=== PATIENT | male | born 1940 | race Hispanic/Latino ===

== ENCOUNTER 2016-07-11 14:24 | Inpatient (IN) | payer MEDICARE ==
[2016-07-11 16:27] LABS: Basophils % (Auto) 0.4 % (0.0-1.8); Eosinophils % (Auto) 3.4 % (0.0-4.3); Hemoglobin 11.3 gm/dl (11.8-15.2); Mean Corpuscular HGB Conc 33 % (32-34); Mean Corpuscular Hemoglobin 30 pg (28-32); Mean Corpuscular Volume 89 fl (84-94); Platelet Count 218 K/mm3 (140-440); Red Blood Count 3.81 M/mm3 (3.65-5.03); Red Cell Distribution Width 14.5 % (13.2-15.2); White Blood Count 6.4 K/mm3 (4.5-11.0)
[2016-07-11] MEDS ORDERED: NACL 0.9% 1000 ML 1,000 ML IV ONE (16:38)
[2016-07-11 16:39] LABS: BUN/Creatinine Ratio 18.88; Blood Urea Nitrogen 17 mg/dL (9-20); Calcium 9.4 mg/dL (8.4-10.2); Carbon Dioxide 21 mmol/L (22-30); Glucose 157 mg/dL (75-100)
[2016-07-11 16:40] LABS: Chloride 102.8 mmol/L (98-107); Potassium 3.9 mmol/L (3.6-5.0); Sodium 142 mmol/L (137-145)
--- NOTE | 2016-07-11 16:40 | Emergency Department Report ---
ED General Adult HPI - General Chief complaint: Chest Pain Stated complaint: DIZZINESS Time Seen by Provider: 07/11/16 16:24 Source: patient, family, EMS, old records reviewed Mode of arrival: Stretcher Limitations: Physical Limitation - History of Present Illness Initial comments: This is a 75-year-old male, previously unknown to me. His primary care doctor is Dr. Peter Khan. Has a past medical history intracranial shunt, high cholesterol, hypertension, renal colic. Patient is brought to the hospital by EMS for dizziness and weakness. As per EMS documentation, the patient indicated he felt dizzy and weak for a few weeks. Also, chronic pain in his lower back. Patient's family indicated to me that the patient had an episode of syncope today. He was sitting down, and it'll think he hit his head. To me, the patient denies chest pain, shortness of breath and upper back pain. He complains of chronic left paralumbar back pain, which is sharp, does not radiate anywhere. There is no midline neck pain. There is no extremity weakness. There is no extremity numbness. There is no testicular pain. There are no fevers. Denies irritative and obstructive urinary symptoms. Has no recollection of syncopal event. Patient reports that he came here recently for kidney stone procedure, but medical records do not corroborate this. -: Gradual, week(s) Location: back Quality: aching Consistency: constant Improves with: none Worsens with: none Associated Symptoms: loss of appetite, syncope, weakness - Related Data Home Medications Medication Instructions Recorded Confirmed Last Taken Amlodipine Besylate/Benazepril 1 cap PO QDAY 10/25/13 07/11/16 11/21/13 06:30 [amLODIPine-Benazepril 10/20 mg] Atorvastatin [Lipitor] 40 mg PO QDAY 10/25/13 07/11/16 11/20/13 Fenofibrate 160 mg PO QDAY 10/25/13 07/11/16 11/20/13 Finasteride 5 mg PO QDAY 10/25/13 07/11/16 11/20/13 Metoprolol Xl [Metoprolol 50 mg PO QDAY 10/25/13 07/11/16 11/21/13 06:30 SUCCINATE ER TAB] Sitagliptin Phosphate [Januvia] 100 mg PO QDAY 10/25/13 07/11/1611/20/14 glyBURIDE/METFORMIN HCL 1 tab PO BID 10/25/13 07/11/16 11/20/13 [Glyburide-Metformin 5-500 mg] Aspirin EC [Aspirin Enteric Coated 81 mg PO DAILY 11/15/13 07/11/16 Unknown TAB] Previous Rx's Medication Instructions Recorded Last Taken Type Ketorolac [Toradol] 10 mg PO Q6H PRN #7 tablet 03/28/16 Unknown Rx Ondansetron [Zofran Odt] 4 mg PO Q4H PRN #5 tab.rapdis 03/28/16 Unknown Rx Ibuprofen [Motrin] 800 mg PO Q8HR PRN #30 tablet 04/27/16 Unknown Rx Allergies Allergy/AdvReac Type Severity Reaction Status Date / Time oxycodone [Oxycodone] Allergy THROAT Verified 11/15/13 15:25 [facility] ED Review of Systems ROS: Stated complaint: DIZZINESS Other details as noted in HPI Constitutional: malaise, weakness Eyes: denies: vision change ENT: denies: epistaxis Respiratory: see HPI Cardiovascular: syncope Gastrointestinal: denies: abdominal pain Genitourinary: denies: testicular pain Musculoskeletal: back pain Skin: denies: lesions Neurological: weakness, confusion ED Past Medical Hx - Past Medical History Previous Medical History?: Yes Hx Hypertension: Yes Hx Diabetes: Yes Hx Arthritis: Yes (bilat thumbs) - Surgical History Past Surgical History?: Yes Additional Surgical History: neck surgery 12/23; shunt pariatal rt 2014 - Social History Smoking Status: Never Smoker Substance Use Type: None - Medications Home Medications: Home Medications Medication Instructions Recorded Confirmed Last Taken Type Amlodipine Besylate/Benazepril 1 cap PO QDAY 10/25/13 07/11/16 11/21/13 06:30 History [amLODIPine-Benazepril 10/20 mg] Atorvastatin [Lipitor] 40 mg PO QDAY 10/25/13 07/11/16 11/20/13 History Fenofibrate 160 mg PO QDAY 10/25/13 07/11/16 11/20/13 History Finasteride 5 mg PO QDAY 10/25/13 07/11/16 11/20/13 History Metoprolol Xl [Metoprolol 50 mg PO QDAY 10/25/13 07/11/16 11/21/13 06:30 History SUCCINATE ER TAB] Sitagliptin Phosphate [Januvia] 100 mg PO QDAY 10/25/13 07/11/16 11/20/13 History glyBURIDE/METFORMIN HCL 1 tab PO BID 10/25/13 07/11/16 11/20/13 History [Glyburide-Metformin 5-500 mg] Aspirin EC [Aspirin Enteric Coated 81 mg PO DAILY 11/15/13 07/11/16 Unknown History TAB] Ketorolac [Toradol] 10 mg PO Q6H PRN #7 tablet 03/28/16 07/11/16 Unknown Rx Ondansetron [Zofran Odt] 4 mg PO Q4H PRN #5 tab.rapdis 03/28/16 07/11/16 Unknown Rx Ibuprofen [Motrin] 800 mg PO Q8HR PRN #30 tablet 04/27/16 07/11/16 Unknown Rx ED Physical Exam - General Limitations: Physical Limitation General appearance: alert, in no apparent distress - Head Head exam: Present: atraumatic, normocephalic - Eye Eye exam: Present: normal appearance, EOMI. Absent: nystagmus - ENT ENT exam: Present: normal exam, normal orophraynx, mucous membranes moist, normal external ear exam - Neck Neck exam: Present: normal inspection, full ROM. Absent: tenderness, meningismus - Respiratory Respiratory exam: Present: normal lung sounds bilaterally. Absent: respiratory distress, wheezes, rales, rhonchi, stridor, chest wall tenderness - Cardiovascular Cardiovascular Exam: Present: normal rhythm, tachycardia, normal heart sounds. Absent: systolic murmur, diastolic murmur, rubs, gallop - GI/Abdominal GI/Abdominal exam: Present: soft, normal bowel sounds. Absent: distended, tenderness, guarding, rebound, rigid, organomegaly, mass, bruit, pulsatile mass - Rectal Rectal exam: Present: deferred - Extremities Exam Extremities exam: Present: normal inspection, full ROM, normal capillary refill. Absent: tenderness, pedal edema, joint swelling, calf tenderness - Back Exam Back exam: Present: normal inspection, full ROM, paraspinal tenderness - Neurological Exam Neurological exam: Present: alert, oriented X3, other (Extraocular movements intact. Tongue midline. No facial droop. Facial sensation intact to light touch in the V1, V2, V3 distribution bilaterally. 5 and 5 strength in 4 extremities.. Sensation is intact to light touch in 4 extremities.X-rays chest x-ray is). Absent: motor sensory deficit - Psychiatric Psychiatric exam: Present: flat affect - Skin Skin exam: Present: warm, dry, intact, normal color. Absent: rash ED Course Vital Signs 07/11/16 07/11/16 07/11/16 14:48 15:00 15:30 Temperature Pulse Rate 108 H 89 94 H Respiratory 14 22 19 Rate Blood Pressure 157/28 109/44 O2 Sat by Pulse 98 97 Oximetry 07/11/16 07/11/16 07/11/16 15:32 15:50 16:00 Temperature 97.8 F Pulse Rate 94 H 96 H Respiratory 16 16 17 Rate Blood Pressure 144/56 98/47 O2 Sat by Pulse 98 99 99 Oximetry 07/11/16 07/11/16 07/11/16 16:10 16:30 17:00 Temperature Pulse Rate 97 H 94 H 91 H Respiratory 18 13 20 Rate Blood Pressure 98/47 144/73 147/70 O2 Sat by Pulse 98 98 97 Oximetry - Reevaluation(s) Reevaluation #1: 07/11/16 17:33 Differential diagnosis: Intracranial injury, arrhythmia, pneumonia, urinary tract infection, structural cardiac disease, pulmonary embolus, concussion, aortic aneurysm, renal colic, diverticulitis, acute coronary syndrome, orthostasis Assessment and plan: Elderly male complaining of weakness, diarrhea, lower back pain, found to have episode of syncope by family. Patient is a poor historian. He is alert and oriented to name, month, year, location. Does report a recent hospital admission for nonspecific renal procedure, he cannot recall what hospital. No indication for cervical spine imaging at this time. As per brother, the patient was sitting when he had a syncopal event. CT scan of the head is pending. CT scan of the chest is pending giving positive d-dimer. CT scan of the abdomen and pelvis is pending given lower back pain. Slightly hypomagnesemic, this will be repleted. Urinalysis and rectal temperature pending. We will assess after data points have returned, plan to admit for syncope, weakness. Reevaluation #2: 07/11/16 21:01 CT scan of the head, chest, abdomen and pelvis demonstrated no acute disease. Indeterminate age compression fracture is suggested. Given his advanced age, possible syncope, unclear/ambiguous history, patient to be admitted for further evaluation and management. Case is discussed with the Hospital physician, Dr. Watts, who accepts the patient. ED Medical Decision Making - Lab Data Result diagrams: 07/11/16 15:59 07/11/16 15:59 Vital Signs 07/11/16 07/11/16 07/11/16 14:48 15:00 15:30 Temperature Pulse Rate 108 H 89 94 H Respiratory 14 22 19 Rate Blood Pressure 157/28 109/44 O2 Sat by Pulse 98 97 Oximetry 07/11/16 07/11/16 07/11/16 15:32 15:50 16:00 Temperature 97.8 F Pulse Rate 94 H 96 H Respiratory 16 16 17 Rate Blood Pressure 144/56 98/47 O2 Sat by Pulse 98 99 99 Oximetry 07/11/16 07/11/16 07/11/16 16:10 16:30 17:00 Temperature Pulse Rate 97 H 94 H 91 H Respiratory 18 13 20 Rate Blood Pressure 98/47 144/73 147/70 O2 Sat by Pulse 98 98 97 Oximetry Labs 07/11/16 07/11/16 07/11/16 15:59 15:59 15:59 WBC 6.4 RBC 3.81 Hgb 11.3 L Hct 34.0 L MCV 89 MCH 30 MCHC 33 RDW 14.5 Plt Count 218 Lymph % (Auto) 6.8 L Irwin % (Auto) 4.9 Eos % (Auto) 3.4 Baso % (Auto) 0.4 Lymph # 0.4 L Irwin # 0.3 Eos # 0.2 Baso # 0.0 Seg Neutrophils % 84.5 H Seg Neutrophils # 5.4 PT INR APTT D-Dimer Sodium 142 Potassium 3.9 Chloride 102.8 Carbon Dioxide 21 L Anion Gap 22 BUN 17 Creatinine 0.9 Estimated GFR > 60 BUN/Creatinine Ratio 18.88 Glucose 157 H Calcium 9.4 Magnesium 1.6 L Total Creatine Kinase 29 L Troponin T < 0.010 07/11/16 07/11/16 16:42 17:13 WBC RBC Hgb Hct MCV MCH MCHC RDW Plt Count Lymph % (Auto) Irwin % (Auto) Eos % (Auto) Baso % (Auto) Lymph # Irwin # Eos # Baso # Seg Neutrophils % Seg Neutrophils # PT 13.5 INR 1.04 APTT 24.2 D-Dimer 844 H Sodium Potassium Chloride Carbon Dioxide Anion Gap BUN Creatinine Estimated GFR BUN/Creatinine Ratio Glucose Calcium Magnesium Total Creatine Kinase Troponin T - EKG Data 07/11/16 17:35 Motion artifacts noted, premature ventricular contractions, 82 bpm, normal axis , normal intervals, nonspecific ST and T abnormalities, appears grossly unchanged compared to prior EKG. - Radiology Data Radiology results: report reviewed, image reviewed interpreted by me: Portable chest x-ray negative, perihilar atelectasis appreciated Radiology chest x-ray negative. X-ray pelvis negative, DJD, prostatic seed appreciated. ct reports read and appreciated Critical care attestation.: If time is entered above; I have spent that time in minutes in the direct care of this critically ill patient, excluding procedure time. ED Disposition Clinical Impression: Syncope Qualifiers: Encounter type: initial encounter Disposition: OP ADMITTED IP TO THIS HOSP Is pt being admited?: Yes Condition: Stable Instructions: Syncope (ED) Referrals: PRIMARY CARE, [Primary Care Provider] - 3-5 Days
[2016-07-11 16:41] LABS: Anion Gap 22 mmol/L
[2016-07-11] MEDS ORDERED: NACL ONE (16:53)
[2016-07-11 17:09] LABS: INR 1.04 (0.87-1.13)
[2016-07-11 17:10] LABS: Partial Thromboplastin Time 24.2 Sec. (24.2-36.6)
[2016-07-11 17:15] LABS: Magnesium 1.6 mg/dL (1.7-2.3)
[2016-07-11] MEDS ORDERED: MAGNESIUM SULFATE 2GM/50ML 50 ML IV ONE (17:30)
--- NOTE | 2016-07-11 17:52 | XRay Report ---
FINAL REPORT EXAM: XR CHEST 1V AP HISTORY: syncope TECHNIQUE: upright single view chest PRIORS: No prior studies are available comparison FINDINGS: Cardiac and mediastinal contours are unremarkable. No focal pulmonary infiltrate is identified. No pleural fluid collection seen. Pulmonary vasculature is unremarkable. Tubing overlies the right richard thorax IMPRESSION: No acute abnormality identified
--- NOTE | 2016-07-11 18:28 | Cat Scan Report ---
FINAL REPORT EXAM: CT HEAD/BRAIN WO CON HISTORY: weakness syncoope TECHNIQUE: CT head without contrast PRIORS: None. FINDINGS: Right posterior ventriculostomy to is identified tip of the tube at the left lateral ventricle. There is parenchymal volume loss with generalized prominence ventricles and sulci. No acute intra or extra-axial hemorrhage is identified. No acute parenchymal abnormality seen. Bony calvarium is unremarkable. Visualized portions of the mastoids and paranasal sinuses are unremarkable. IMPRESSION: Ventriculostomy tube Atrophy with generalized parenchymal volume loss No acute intracranial findings
[2016-07-11 18:47] LABS: Urine Drugs of Abuse Note Disclamer
--- NOTE | 2016-07-11 18:50 | Cat Scan Report ---
FINAL REPORT EXAM: CT ABDOMEN PELVIS W CON HISTORY: weakness syncoope TECHNIQUE: CT abdomen and pelvis with intravenous contrast PRIORS: None. FINDINGS: No acute abnormality identified in the lung bases. No focal abnormality identified within the liver parenchyma. The spleen demonstrates normal size and attenuation. No pancreatic abnormalities seen. The kidneys demonstrate symmetric contrast enhancement. No evidence of hydronephrosis. The adrenal glands are unremarkable Abdominal aorta is normal in caliber. No pathologically enlarged lymph nodes are identified. Trace of free fluid noted in the lower pelvis. No evidence of small bowel dilatation. Colon is nondistended. No pericolonic inflammatory change. CLINICAL RESEARCH TECHNICIAN shunt tubing is seen distal end within the right lower quadrant of the abdomen. Urinary bladder is unremarkable. Compression fracture of L2 noted age-indeterminate appears most likely chronic please correlate with clinical findings. IMPRESSION: L2 compression fracture age indeterminate Trace of free fluid noted in the lower pelvis CLINICAL RESEARCH TECHNICIAN shunt tubing noted in the abdomen..
--- NOTE | 2016-07-11 18:59 | Cat Scan Report ---
FINAL REPORT EXAM: CT ANGIO CHEST HISTORY: weakness syncoope TECHNIQUE: CT chest CT angiogram with reconstructions PRIORS: None. FINDINGS: There is no evidence of filling defect within the central pulmonary vasculature to suggest the presence of acute pulmonary embolus. No evidence of mediastinal pathologic lymph node enlargement Heart and great vessels are unremarkable. The aorta is normal in caliber. No focal pulmonary infiltrate identified. No pleural fluid collection seen. No acute pulmonary abnormality noted. Visualized portion of the upper abdomen demonstrates no acute change There elevation of the right hemidiaphragm. IMPRESSION: Elevated right hemidiaphragm noted No CT evidence of acute pulmonary embolus
--- NOTE | 2016-07-11 19:03 | XRay Report ---
FINAL REPORT EXAM: XR PELVIS 1-2V HISTORY: pain weakness TECHNIQUE: AP pelvis PRIORS: None. FINDINGS: Radiation therapy seeds noted in the prostate. No acute fracture identified. No dislocation seen. Noted are degenerative changes lower lumbar spine. IMPRESSION: Radiation therapy seeds in the prostate Degenerative changes noted at the SI joints and lumbar spine Otherwise no acute findings
[2016-07-11 19:21] LABS: Bilirubin,Urine NEG (Negative); Blood,Urine NEG (Negative); Ketones,Urine NEG (Negative); Leukocyte Esterase,Urine NEG (Negative); Mucus,Urine 1+ /HPF; Nitrite,Urine NEG (Negative); Protein,Urine <15 mg/dL mg/dL (Negative); Urobilinogen,Urine < 2.0 mg/dL (<2.0)
--- NOTE | 2016-07-11 22:31 | History and Physical Report ---
History of Present Illness Date of examination: 07/11/16 Date of admission: 07/11/16 Chief complaint: Passed out per family this afternoon. History of present illness: 75 y/o WM -a poor historian brought in for passing out.As per patient he has dizziness and weakness.Also severee Lower back pain with radiation to L gluteal region.Apparently passed out while in a sitting posture per family.Patient unable to recall.No chest pain.No SOB.No fever /chills. Pain lower back about 7 on scale of 10. Past History Past Medical History: diabetes, hypertension, hyperlipidemia, other (LBP and BPH ) Past Surgical History: Other (Neck surgery and shunt-family not clear.Ventriculo peritoneal shunt???) Social history: no significant social history, lives with family Medications and Allergies Allergies Allergy/AdvReac Type Severity Reaction Status Date / Time oxycodone [Oxycodone] Allergy THROAT Verified 11/15/13 15:25 SWELLS Home Medications Medication Instructions Recorded Confirmed Last Taken Type Amlodipine Besylate/Benazepril 1 cap PO QDAY 10/25/13 07/11/16 11/21/13 06:30 History [amLODIPine-Benazepril 10/20 mg] Atorvastatin [Lipitor] 40 mg PO QDAY 10/25/13 07/11/16 11/20/13 History Fenofibrate 160 mg PO QDAY 10/25/13 07/11/16 11/20/13 History Finasteride 5 mg PO QDAY 10/25/13 07/11/16 11/20/13 History Metoprolol Xl [Metoprolol 50 mg PO QDAY 10/25/13 07/11/16 11/21/13 06:30 History SUCCINATE ER TAB] Sitagliptin Phosphate [Januvia] 100 mg PO QDAY 10/25/13 07/11/16 11/20/13 History glyBURIDE/METFORMIN HCL 1 tab PO BID 10/25/13 07/11/16 11/20/13 History [Glyburide-Metformin 5-500 mg] Aspirin EC [Aspirin Enteric Coated 81 mg PO DAILY 11/15/13 07/11/16 Unknown History TAB] Ketorolac [Toradol] 10 mg PO Q6H PRN #7 tablet 03/28/16 07/11/16 Unknown Rx Ondansetron [Zofran Odt] 4 mg PO Q4H PRN #5 tab.rapdis 03/28/16 07/11/16 Unknown Rx Ibuprofen [Motrin] 800 mg PO Q8HR PRN #30 tablet 04/27/16 07/11/16 Unknown Rx Review of Systems All systems: negative Cardiovascular: syncope Musculoskeletal: low back pain Exam - Constitutional Vitals: Temp Pulse Resp BP Pulse Ox 97.8 F 117 H 14 135/51 97 07/11/16 15:32 07/11/16 18:30 07/11/16 18:30 07/11/16 21:00 07/11/16 21:00 General appearance: Present: no acute distress, well-nourished - EENT Eyes: Present: PERRL ENT: hearing intact, clear oral mucosa - Neck Neck: Present: supple, normal ROM - Respiratory Respiratory effort: normal Respiratory: bilateral: CTA - Cardiovascular Heart Sounds: Present: S1 & S2. Absent: rub, click - Extremities Extremities: pulses symmetrical, No edema Peripheral Pulses: within normal limits - Abdominal General gastrointestinal: Present: soft, non-tender, non-distended, normal bowel sounds Male genitourinary: Present: normal - Integumentary Integumentary: Present: clear, warm, dry - Musculoskeletal Musculoskeletal: gait normal, strength equal bilaterally - Psychiatric Psychiatric: appropriate mood/affect, intact judgment & insight - Neurologic Neurologic: CNII-XII intact, moves all extremities Results - Labs CBC & Chem 7: 07/11/16 15:59 07/11/16 15:59 Labs: Abnormal lab results 07/11/16 07/11/16 07/11/16 Range/Units 15:59 15:59 15:59 Hgb 11.3 L (11.8-15.2) gm/dl Hct 34.0 L (35.5-45.6) % Lymph % (Auto) 6.8 L (13.4-35.0) % Lymph # 0.4 L (1.2-5.4) K/mm3 Seg Neutrophils % 84.5 H (40.0-70.0) % D-Dimer (0-234) ng/mlDDU Carbon Dioxide 21 L (22-30) mmol/L Glucose 157 H (75-100) mg/dL Lactic Acid (0.7-2.0) mmol/L Magnesium 1.6 L (1.7-2.3) mg/dL Total Creatine Kinase 29 L (55-170) units/L 07/11/16 07/11/16 Range/Units 17:13 17:13 Hgb (11.8-15.2) gm/dl Hct (35.5-45.6) % Lymph % (Auto) (13.4-35.0) % Lymph # (1.2-5.4) K/mm3 Seg Neutrophils % (40.0-70.0) % D-Dimer 844 H (0-234) ng/mlDDU Carbon Dioxide (22-30) mmol/L Glucose (75-100) mg/dL Lactic Acid 2.4 H* (0.7-2.0) mmol/L Magnesium (1.7-2.3) mg/dL Total Creatine Kinase (55-170) units/L Assessment and Plan - Patient Problems (1) Syncope Current Visit: Yes Status: Acute Qualifiers: Encounter type: initial encounter Plan to address problem: Syncope w/u-Lexiscan,Carotid duplex scan and serial cardiac enzymmes. (2) HTN (hypertension) Current Visit: Yes Status: Chronic Qualifiers: Hypertension type: essential hypertension Qualified Code(s): I10 - Essential (primary) hypertension Plan to address problem: Cont antihypertensives (3) HLD (hyperlipidemia) Current Visit: Yes Status: Acute Qualifiers: Hyperlipidemia type: mixed hyperlipidemia Qualified Code(s): E78.2 - Mixed hyperlipidemia Plan to address problem: Cont statins and fenofibrate (4) T2DM (type 2 diabetes mellitus) Current Visit: Yes Status: Acute Qualifiers: Diabetes mellitus complication status: without complication Diabetes mellitus intermediate insulin use: without marine oil terminal superintendent use Qualified Code(s): E11.9 - Type 2 diabetes mellitus without complications Plan to address problem: Cont oral hypoglycemics and insulin coverage. (5) BPH (benign prostatic hyperplasia) Current Visit: Yes Status: Chronic Qualifiers: Prostatic enlargement morphology: unspecified morphology Lower urinary tract symptom presence: symptoms present Qualified Code(s): N40.1 - Benign prostatic hyperplasia with lower urinary tract symptoms Plan to address problem: Cont Finasteride (6) Hypomagnesemia Current Visit: Yes Status: Acute Plan to address problem: Supplemented (7) Low back pain Current Visit: Yes Status: Chronic Qualifiers: Back pain laterality: left Sciatica presence: with sciatica Plan to address problem: L2 compression fracture on abdominal/pelvis CT. On ketorolac.Will defer to Primary care regading need for low to moderate of opiates in place of ketorolac which can damage renal function. (8) DVT prophylaxis Current Visit: Yes Status: Acute Plan to address problem: On lovenox sub q
[2016-07-11] MEDS ORDERED: TORADOL PO PRN (22:32)
[2016-07-11] MEDS ORDERED: MOTRIN PO PRN (22:32)
[2016-07-11] MEDS ORDERED: ZOFRAN ODT PO PRN (22:32)
[2016-07-11] MEDS ORDERED: ZOFRAN IV PRN (22:37)
[2016-07-11] MEDS ORDERED: PERCOCET 5/325 PO PRN (22:37)
[2016-07-11] MEDS ORDERED: TYLENOL PO PRN (22:37)
[2016-07-11] MEDS ORDERED: DILAUDID IV PRN (22:37)
[2016-07-11] MEDS ORDERED: DULCOLAX PR PRN (22:37)
[2016-07-11] MEDS ORDERED: MILK OF MAGNESIA PO PRN (22:37)
[2016-07-11] MEDS ORDERED: SODIUM CHLORIDE FLUSH SYRINGE 10 ML IV PRN (22:40)
[2016-07-11] MEDS ORDERED: NOVOLOG SUB-Q ONE (22:41)
[2016-07-12 00:03] LABS: Creatine Kinase MB 2.5 ng/mL (0.0-4.0)
[2016-07-12 00:04] LABS: Creatine Kinase 165 units/L (55-170)
[2016-07-12] MEDS ORDERED: LEXISCAN IV ONE ×2 (08:14→10:00)
[2016-07-12] MEDS ORDERED: LEXISCAN IV NR (08:14)
[2016-07-12] MEDS ORDERED: MAGNESIUM SULFATE 2GM/50ML 50 ML IV ONE (08:20)
--- NOTE | 2016-07-12 10:42 | Treadmill Report ---
NUCLEAR STUDY REASON FOR STUDY: Chest pain. IMAGING PROTOCOL: The patient received 10 mCi of Technetium 99m Tetrofosmin for resting image and 28 mCi of Technetium 99m Tetrofosmin for stress imaging. The imaging for the whole procedure was completed 30-90 minutes following the initial injection of Technetium 99m tetrofosmin. The SPECT imaging in the 180 degree arc was performed in the right anterior oblique projection. Computerized reconstruction of the images was performed for analysis. IMAGING RESULTS: Normal cavity size from stress to rest. Normal distribution of radionuclide in the anterior, inferior, septal, and apical regions. Gated SPECT, EF 66% with no wall motion abnormality. The patient infused Lexiscan with no EKG changes. SUMMARY: 1. Negative Lexiscan EKG. 2. Normal rest and stress myocardial perfusion scan. No significant stress ischemia. No wall motion abnormality. Gated SPECT, EF 66%. JOB# [id number] JENNIFER/CARROLL
[2016-07-12] MEDS: HALFPRIN EC PO SCH (10:51)
[2016-07-12] MEDS: TOPROL XL PO SCH (10:52)
[2016-07-12] MEDS: NORVASC PO SCH (10:52)
[2016-07-12] MEDS: ZESTRIL PO SCH (10:53)
[2016-07-12] MEDS: TRICOR PO SCH (10:53)
[2016-07-12] MEDS: TRADJENTA PO SCH (10:53)
[2016-07-12] MEDS: PROSCAR PO SCH (10:53)
[2016-07-12 11:51] LABS: Creatine Kinase 154 units/L (55-170)
--- NOTE | 2016-07-12 12:36 | Progress Note ---
Assessment and Plan Assessment and plan: 75 y/o WM -a poor historian brought in for passing out.As per patient he has dizziness and weakness. Also severe Lower back pain with radiation to L gluteal region. Apparently passed out while in a sitting posture per family. Patient unable to recall. No chest pain.No SOB.No fever /chills. Pain lower back about 7 on scale of 10. * Syncope and collapse likely vasovagal in nature * Normal pressure hydrocephalus * Chronic low back pain * Peripheral vascular disease * Hypertension * Lactic acidosis-resolved * Hyperlipidemia * Diabetes mellitus Plan * Patient had a stress test done was negative * Continue current therapy * Obtain physical therapy evaluate and treat * Neurology input appreciated will obtain an EEG * If no evidence of seizure will discharge patient in a.m. will need home health * Patient reports that he has a pain physician will recommend continued evaluation of his chronic pain continues to be worse we'll recommend obtaining a neurosurgical evaluation. * No evidence of headache at this time * DVT and GI prophylaxis * Plan discussed with patient in detail History Interval history: Patient seen and examined this morning in no acute distress. Admitted with syncope and forgetfulness Denies any chest pain, nausea, vomiting, diarrhea. Complains of chronic back pain No fever noted blood pressure controlled No adverse events reported to me by nursing staff Hospitalist Physical - Physical exam Narrative exam: VITAL SIGNS: Reviewed. GENERAL: The patient appeared well nourished and normally developed. Vital signs as documented. HEAD: No signs of head trauma. EYES: Pupils are equal. Extraocular motions intact. EARS: Hearing grossly intact. MOUTH: Oropharynx is normal. NECK: No adenopathy, no JVD. CHEST: Chest with clear breath sounds bilaterally. No wheezes, rales, or rhonchi. CARDIAC: Regular rate and rhythm. S1 and S2, without murmurs, gallops, or rubs. VASCULAR: No Edema. Peripheral pulses normal and equal in all extremities. ABDOMEN: Soft, without detectable tenderness. No sign of distention. No rebound or guarding, and no masses palpated. Bowel Sounds normal. MUSCULOSKELETAL: Good range of motion of all major joints. Extremities without clubbing, cyanosis or edema. NEUROLOGIC EXAM: Alert and oriented x 3. Although no focal neurologic deficit patient appears weak. Speech normal. Follows commands. PSYCHIATRIC: Mood normal. SKIN: No rash or lesions. - Constitutional Vitals: Temp Pulse Resp BP Pulse Ox 98.4 F 95 H 20 143/64 96 07/12/16 08:16 07/12/16 10:53 07/12/16 08:16 07/12/16 10:53 07/12/16 11:56 General appearance: Present: no acute distress, well-nourished Results - Labs CBC & Chem 7: 07/11/16 15:59 07/11/16 15:59 Labs: Laboratory Last Values WBC 6.4 K/mm3 (4.5-11.0) 07/11/16 15:59 RBC 3.81 M/mm3 (3.65-5.03) 07/11/16 15:59 Hgb 11.3 gm/dl (11.8-15.2) L 07/11/16 15:59 Hct 34.0 % (35.5-45.6) L 07/11/16 15:59 MCV 89 fl (84-94) 07/11/16 15:59 MCH 30 pg (28-32) 07/11/16 15:59 MCHC 33 % (32-34) 07/11/16 15:59 RDW 14.5 % (13.2-15.2) 07/11/16 15:59 Plt Count 218 K/mm3 (140-440) 07/11/16 15:59 Lymph % (Auto) 6.8 % (13.4-35.0) L 07/11/16 15:59 Wilkinson % (Auto) 4.9 % (0.0-7.3) 07/11/16 15:59 Eos % (Auto) 3.4 % (0.0-4.3) 07/11/16 15:59 Baso % (Auto) 0.4 % (0.0-1.8) 07/11/16 15:59 Lymph # 0.4 K/mm3 (1.2-5.4) L 07/11/16 15:59 Wilkinson # 0.3 K/mm3 (0.0-0.8) 07/11/16 15:59 Eos # 0.2 K/mm3 (0.0-0.4) 07/11/16 15:59 Baso # 0.0 K/mm3 (0.0-0.1) 07/11/16 15:59 Seg Neutrophils % 84.5 % (40.0-70.0) H 07/11/16 15:59 Seg Neutrophils # 5.4 K/mm3 (1.8-7.7) 07/11/16 15:59 PT 13.5 Sec. (12.2-14.9) 07/11/16 16:42 INR 1.04 (0.87-1.13) 07/11/16 16:42 APTT 24.2 Sec. (24.2-36.6) 07/11/16 16:42 D-Dimer 844 ng/mlDDU (0-234) H 07/11/16 17:13 Sodium 142 mmol/L (137-145) 07/11/16 15:59 Potassium 3.9 mmol/L (3.6-5.0) 07/11/16 15:59 Chloride 102.8 mmol/L (98-107) 07/11/16 15:59 Carbon Dioxide 21 mmol/L (22-30) L 07/11/16 15:59 Anion Gap 22 mmol/L 07/11/16 15:59 BUN 17 mg/dL (9-20) 07/11/16 15:59 Creatinine 0.9 mg/dL (0.8-1.5) 07/11/16 15:59 Estimated GFR > 60 ml/min 07/11/16 15:59 BUN/Creatinine Ratio 18.88 % 07/11/16 15:59 Glucose 157 mg/dL (75-100) H 07/11/16 15:59 POC Glucose 121 (70-105) H 07/12/16 00:15 Lactic Acid 0.8 mmol/L (0.7-2.0) 07/12/16 11:12 Calcium 9.4 mg/dL (8.4-10.2) 07/11/16 15:59 Magnesium 1.6 mg/dL (1.7-2.3) L 07/11/16 15:59 Total Creatine Kinase 154 units/L (55-170) 07/12/16 11:12 CK-MB (CK-2) 2.0 ng/mL (0.0-4.0) 07/12/16 11:12 CK-MB (CK-2) Rel Index 1.2 (0-4) 07/12/16 11:12 Troponin T < 0.010 ng/mL (0.00-0.029) 07/12/16 11:12 Urine Color Straw (Yellow) 07/11/16 18:40 Urine Turbidity Clear (Clear) 07/11/16 18:40 Urine pH 6.0 (5.0-7.0) 07/11/16 18:40 Ur Specific [place] 1.026 (1.003-1.030) 07/11/16 18:40 Urine Protein <15 mg/dl mg/dL (Negative) 07/11/16 18:40 Urine Glucose (UA) Neg mg/dL (Negative) 07/11/16 18:40 Urine Ketones Neg mg/dL (Negative) 07/11/16 18:40 Urine Blood Neg (Negative) 07/11/16 18:40 Urine Nitrite Neg (Negative) 07/11/16 18:40 Urine Bilirubin Neg (Negative) 07/11/16 18:40 Urine Urobilinogen < 2.0 mg/dL (<2.0) 07/11/16 18:40 Ur Leukocyte Esterase Neg (Negative) 07/11/16 18:40 Urine WBC (Auto) 1.0 /HPF (0.0-6.0) 07/11/16 18:40 Urine RBC (Auto) 5.0 /HPF (0.0-6.0) 07/11/16 18:40 U Epithel Cells (Auto) 1.0 /HPF (0-13.0) 07/11/16 18:40 Urine Mucus 1+ /HPF 07/11/16 18:40 Urine Opiates Screen Presumptive negative 07/11/16 18:40 Urine Methadone Screen Presumptive negative 07/11/16 18:40 Ur Barbiturates Screen Presumptive negative 07/11/16 18:40 Ur Phencyclidine Scrn Presumptive negative 07/11/16 18:40 Ur Amphetamines Screen Presumptive negative 07/11/16 18:40 U Benzodiazepines Scrn Presumptive negative 07/11/16 18:40 Urine Cocaine Screen Presumptive negative 07/11/16 18:40 U Marijuana (THC) Screen Presumptive negative 07/11/16 18:40 Drugs of Abuse Note Disclamer 07/11/16 18:40 - Imaging and Cardiology CT Scan - head: image reviewed (no acute pathology noted)
[2016-07-12] MEDS: GLUCOPHAGE PO SCH ×2 (12:48→17:26)
[2016-07-12] MEDS: DIABETA PO SCH ×2 (12:48→17:27)
[2016-07-12] MEDS: NOVOLOG SUB-Q SCH ×3 (12:55→23:05)
--- NOTE | 2016-07-12 14:14 | Consultation ---
History of Present Illness - Reason for Consult Consult date: 07/12/16 dementia - History of Present Illness went over the CT and the shunt catheter is in place suspect that the reason he had AUTOMATION TECH shunt is because of normal pressure hydrocephalus generally even after placement of shunt nothing basically will improve the memory loss therefore advise get EEG I will follow up full note dictated Past History Past Medical History: diabetes, hypertension, hyperlipidemia, other (LBP and BPH ) Past Surgical History: Other (Neck surgery and shunt-family not clear.Ventriculo peritoneal shunt???) Social history: no significant social history, lives with family Medications and Allergies Allergies Allergy/AdvReac Type Severity Reaction Status Date / Time oxycodone [Oxycodone] Allergy THROAT Verified 11/15/13 15:25 [facility] Home Medications Medication Instructions Recorded Confirmed Last Taken Type Amlodipine Besylate/Benazepril 1 cap PO QDAY 10/25/13 07/11/16 11/21/13 06:30 History [amLODIPine-Benazepril 10/20 mg] Atorvastatin [Lipitor] 40 mg PO QDAY 10/25/13 07/11/16 11/20/13 History Fenofibrate 160 mg PO QDAY 10/25/13 07/11/16 11/20/13 History Finasteride 5 mg PO QDAY 10/25/13 07/11/16 11/20/13 History Metoprolol Xl [Metoprolol 50 mg PO QDAY 10/25/13 07/11/16 11/21/13 06:30 History SUCCINATE ER TAB] Sitagliptin Phosphate [Januvia] 100 mg PO QDAY 10/25/13 07/11/16 11/20/13 History glyBURIDE/METFORMIN HCL 1 tab PO BID 10/25/13 07/11/16 11/20/13 History [Glyburide-Metformin 5-500 mg] Aspirin EC [Aspirin Enteric Coated 81 mg PO DAILY 11/15/13 07/11/16 Unknown History TAB] Ketorolac [Toradol] 10 mg PO Q6H PRN #7 tablet 03/28/16 07/11/16 Unknown Rx Ondansetron [Zofran Odt] 4 mg PO Q4H PRN #5 tab.rapdis 03/28/16 07/11/16 Unknown Rx Ibuprofen [Motrin] 800 mg PO Q8HR PRN #30 tablet 04/27/16 07/11/16 Unknown Rx Active Meds: Active Medications Acetaminophen (Tylenol) 650 mg PO Q4H PRN PRN Reason: Pain MILD(1-3)/Fever >100.5/AGUILAR Amlodipine Besylate (Norvasc) 10 mg PO QDAY [facility] Last Admin: 07/12/16 10:52 Dose: 10 mg Aspirin (Halfprin Ec) 81 mg PO DAILY [facility] Last Admin: 07/12/16 10:51 Dose: 81 mg Atorvastatin Calcium (Lipitor) 40 mg PO QDAY [facility] Last Admin: 07/12/16 10:51 Dose: 40 mg Bisacodyl (Dulcolax) 10 mg NC QDAY PRN PRN Reason: Constipation unrelieved by MOM Fenofibrate (Tricor) 145 mg PO QDAY [facility] Last Admin: 07/12/16 10:53 Dose: 145 mg Finasteride (Proscar) 5 mg PO QDAY [facility] Last Admin: 07/12/16 10:53 Dose: 5 mg Glyburide (Diabeta) 5 mg PO BIDDIAB [facility] Last Admin: 07/12/16 12:48 Dose: Not Given Hydromorphone HCl (Dilaudid) 1 mg IV Q3H PRN PRN Reason: Pain , Severe (7-10) Ibuprofen (Motrin) 800 mg PO Q8H PRN PRN Reason: Pain Insulin Aspart (Novolog) 0 units SUB-Q ACHS [facility] PRN Reason: Protocol Last Admin: 07/12/16 12:55 Dose: 2 units Ketorolac Tromethamine (Toradol) 10 mg PO Q6H PRN PRN Reason: Pain Stop: 07/16/16 22:31 Linagliptin (Tradjenta) 5 mg PO QDAY [facility] Last Admin: 07/12/16 10:53 Dose: 5 mg Lisinopril (Zestril) 20 mg PO QDAY [facility] Last Admin: 07/12/16 10:53 Dose: 20 mg Magnesium Hydroxide (Milk Of Magnesia) 30 ml PO Q4H PRN PRN Reason: Constipation Metformin HCl (Glucophage) 500 mg PO BIDDIAB [facility] Last Admin: 07/12/16 12:48 Dose: Not Given Metoprolol Succinate (Toprol Xl) 50 mg PO QDAY [facility] Last Admin: 07/12/16 10:52 Dose: 50 mg Ondansetron HCl (Zofran Odt) 4 mg PO Q4H PRN PRN Reason: Nausea And Vomiting Ondansetron HCl (Zofran) 4 mg IV Q8H PRN PRN Reason: N/V unrelieved by Sylvia Sodium Chloride (Sodium Chloride Flush Syringe 10 Ml) 10 ml IV PRN PRN PRN Reason: LINE FLUSH Exam - Constitutional Vitals: Temp Pulse Resp BP Pulse Ox 98.5 F 85 20 171/75 95 07/12/16 12:37 07/12/16 12:37 07/12/16 12:37 07/12/16 12:37 07/12/16 12:37 Results - Labs CBC & Chem 7: 07/11/16 15:59 07/11/16 15:59 Labs: Abnormal lab results 07/12/16 07/12/16 Range/Units 00:15 13:01 POC Glucose 121 H 172 H (70-105)
--- NOTE | 2016-07-13 07:20 | Consultation ---
HISTORY OF PRESENT ILLNESS: This is a 75-year-old white male who is admitted to [facility]. He has a history of recently have an intracranial shunt operation, presumably because of dementia, he was brought by EMS because of dizziness and weakness. He presents with an elaborate history of stating that he had left the hospital, was dizzy, thought he was at home, then told people that he left the hospital and subsequently stated he was back at home and he now feels confused and not like himself and states he feels demented. In reviewing his records, he has a ventriculostomy tube, which is in good position. His parenchymal brain volume loss, no acute lesions. Remainder of the CAT scan is unremarkable. PHYSICAL EXAMINATION: VITAL SIGNS: On my examination of the patient, he is alert, but has very poor recall for events around what happened. NEUROLOGIC: His motor tone is symmetrical. His neck is supple. His ocular movements are full. Medical Office Technician strength is equal. No tremors or asterixis are present. Babinski sounds are not noted. No focal seizure activity is present. IMPRESSION: This patient's history would indicate he had dementia. He obviously has a ventriculostomy and was being down from normal pressure hydrocephalus to treat for dementia. I do not have a cross history from the family members to see if he was taking any medicines for treatment of memory loss such as Namenda and Aricept or Exelon. I would think it would be worthwhile to get an EEG on him for purposes of imaging. A CT scan should suffice typically because neural imaging with an MRI scan will not add much information for the function of a shunt, perhaps contacting his neurosurgery would be worthwhile. I will see if any outside records can be researched, I will access that information tomorrow. JOB# [id number] DU/CARROLL
[2016-07-13] MEDS: NOVOLOG SUB-Q SCH ×4 (08:15→22:35)
[2016-07-13] MEDS: PROSCAR PO SCH (09:40)
[2016-07-13] MEDS: TRICOR PO SCH (09:40)
[2016-07-13] MEDS: TRADJENTA PO SCH (09:42)
[2016-07-13] MEDS: TOPROL XL PO SCH (09:42)
[2016-07-13] MEDS: NORVASC PO SCH (09:43)
[2016-07-13] MEDS: ZESTRIL PO SCH (09:43)
[2016-07-13] MEDS: DIABETA PO SCH ×2 (09:44→18:20)
[2016-07-13] MEDS: HALFPRIN EC PO SCH (09:44)
[2016-07-13] MEDS: GLUCOPHAGE PO SCH ×2 (09:45→18:20)
--- NOTE | 2016-07-13 13:53 | Admit Criteria Form ---
Admission Criteria Documentation: SYNCOPE Clinical Indications for Admission to Inpatient Care ( Place 'X' for any and all applicable criteria): Admission is indicated for syncope and ANY ONE of the following (1)(2)(3)(4)(5) (6)(7) : [X ]I. Inpatient admission required rather than observation care (Also use Syncope: Observation Care Criteria as appropriate) because of ANY ONE of the following: [ ]a) Hemodynamic instability that is severe or persistent [ ]b) Cardiac arrhythmias of immediate concern identified or strongly suspected (eg, needs electrophysiologic study) [ ]c) Acute coronary syndrome identified (Also use Myocardial Infarction or Angina Criteria form ) [ ]d) Structural cardiac disorder (eg, aortic stenosis) suspected as cause that requires immediate correction [ ]e) Respiratory symptoms (eg, dyspnea, tachypnea) that are severe or persistent [ ]f) Neurologic signs or symptoms that are severe or persistent ( eg, stroke, seizures, altered mental status) [ ]g) Severe electrolyte abnormalities requiring inpatient care [ ]h) Supplemental oxygen or respiratory treatment for over 24 hrs that are performable only in acute inpatient setting [ ]i) IV fluid to replace significant ongoing (eg, for over 24 hrs ) losses (>3 L/m2 per day) [ ]j) Continuous intravenous infusion of anticoagulation, platelet inhibitor, vasoactive, or antiarrhythmic medication(15)(16) [ ]k) Pulmonary artery catheter monitoring [ ]l) Temporary pacemaker placement(17) [ ]m) Emergent cardioversion(18) [X ]n) Other conditions, treatment or monitoring requiring inpatient admission [ ]II. Suspicion of imminently dangerous cause (eg, rare causes like pericardial tamponade, pulmonary embolism) [ ]III. Syncope causing severe injury requiring hospitalization Extended stay beyond goal length of stay may be needed for(28) [ ]a) Dangerous arrhythmia(15)(23)(27)(29) [ ]b) Myocardial ischemia [ ]c) Seizure disorder [ ]d) Syncope-related injuries The original [employer] content created by [employer] has been revised. The portions of the content which have been revised are identified through the use of italic text or in bold, and [employer] has neither reviewed nor approved the modified material. All other unmodified content is copyright The [employer]. Please see references footnoted in the original [facility] edition 2016 Admission Criteria Met: Yes
--- NOTE | 2016-07-13 17:57 | Discharge Summary ---
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 Also severe Lower back pain with radiation to L gluteal region. Apparently passed out while in a sitting posture per family. Patient unable to recall. No chest pain.No SOB.No fever /chills. Pain lower back about 7 on scale of 10. On further evaluation and also discussing with the family that lives care for the patient missed that he has gradually declined over the past year. Had a fall about a month ago but no head trauma. They're not quite sure if he truly passed out this time the patient states that he had significant pain going up his back that led to the syncope. He does get intermittently confused would consult neurology to see him patient does have a history of normal pressure hydrocephalus which is why he has a shunt placed. The shunt appears to be stable. Is unsure if he takes any medications such as Namenda or Exelon or Aricept. I discussed with them the importance of having a follow-up with neurology outpatient and also to follow-up with the EEG that was done in the hospital. He is clinically stable at this time for discharge. Stress test is negative. My discussions to do well with . Mili hanna. Also spoke with the Mr Hanna who states that patient is at his baseline. Discharge diagnosis * Syncope and collapse likely vasovagal in nature * Normal pressure hydrocephalus * Chronic low back pain * Peripheral vascular disease * Hypertension * Lactic acidosis-resolved * Hyperlipidemia * Diabetes mellitus Disposition: DC/TX HOME UNDER HOME HEALTH Time spent for discharge: 35 min Core Measure Documentation - Palliative Care Palliative Care/ Comfort Measures: Not Applicable - Core Measures Any of the following diagnoses?: none - VTE Discharge Requirements Deep Vein Thrombosis/Pulmonary Embolism Present on Admission: No Exam - Physical Exam Narrative exam: VITAL SIGNS: Reviewed. GENERAL: The patient appeared well nourished and normally developed. Vital signs as documented. HEAD: No signs of head trauma. EYES: Pupils are equal. Extraocular motions intact. EARS: Hearing grossly intact. MOUTH: Oropharynx is normal. NECK: No adenopathy, no JVD. CHEST: Chest with clear breath sounds bilaterally. No wheezes, rales, or rhonchi. CARDIAC: Regular rate and rhythm. S1 and S2, without murmurs, gallops, or rubs. VASCULAR: No Edema. Peripheral pulses normal and equal in all extremities. ABDOMEN: Soft, without detectable tenderness. No sign of distention. No rebound or guarding, and no masses palpated. Bowel Sounds normal. MUSCULOSKELETAL: Good range of motion of all major joints. Extremities without clubbing, cyanosis or edema. NEUROLOGIC EXAM: Alert and oriented x 3. Although no focal neurologic deficit patient appears weak. Speech normal. Follows commands. PSYCHIATRIC: Mood normal. SKIN: No rash or lesions. - Constitutional Vitals: Temp Pulse Resp BP Pulse Ox 98.5 F 72 18 109/59 95 07/13/16 12:42 07/13/16 15:57 07/13/16 15:57 07/13/16 15:57 07/13/16 15:57 Plan Activity: advance as tolerated, fall precautions Diet: low fat Special Instructions: record daily BP diary Durable Medical Equipment Needed Upon Discharge: Walker-Rolling Follow up with: THELMA TUCKER MD [Primary Care Provider] - 3-5 Days ANTONIA AMIN MD [Staff Physician] - 7 Days Prescriptions: Donepezil [Aricept] 10 mg PO QDAY #30 tablet Memantine HCl [Namenda] 10 mg PO DAILY #30 tablet
[2016-07-14] MEDS: NOVOLOG SUB-Q SCH ×4 (08:00→22:50)
--- NOTE | 2016-07-14 08:02 | Progress Note ---
Assessment and Plan Assessment and plan: 75 y/o WM -a poor historian brought in for passing out.As per patient he has dizziness and weakness. Also severe Lower back pain with radiation to L gluteal region. Apparently passed out while in a sitting posture per family. Patient unable to recall. No chest pain.No SOB.No fever /chills. Pain lower back about 7 on scale of 10. On further evaluation and also discussing with the family that lives care for the patient missed that he has gradually declined over the past year. Had a fall about a month ago but no head trauma. They're not quite sure if he truly passed out this time the patient states that he had significant pain going up his back that led to the syncope. He does get intermittently confused would consult neurology to see him patient does have a history of normal pressure hydrocephalus which is why he has a shunt placed. The shunt appears to be stable. Is unsure if he takes any medications such as Namenda or Exelon or Aricept. I discussed with them the importance of having a follow-up with neurology outpatient and also to follow-up with the EEG that was done in the hospital. He is clinically stable at this time for discharge. Stress test is negative. My discussions to do well with Mrs. Mili hanna. Also spoke with the Mr Hanna who states that patient is at his baseline. Discharge diagnosis * Syncope and collapse likely vasovagal in nature * Dementia * Unsteady gait * Normal pressure hydrocephalus * Chronic low back pain * Peripheral vascular disease * Hypertension * Lactic acidosis-resolved * Hyperlipidemia * Diabetes mellitus Plan * Patient had a stress test done was negative * Continue current therapy * PT/OT eval noted but patient leaves in a second floor of home and difficult to get him upstairs. With his intermittent confusion also he will need a higher level of care. Discussed with Case management, Plan for placement. * EEG report pending * No seizure noted * Started on Nemanda * DVT and GI prophylaxis * Ok to discharge once placement arranged. History Interval history: Patient seen and examined this morning in no acute distress. Admitted with syncope and forgetfulness. Was evaluated and planned for discharge yesterday. Denies any chest pain, nausea, vomiting, diarrhea. Complains of chronic back pain No fever noted blood pressure controlled No adverse events reported to me by nursing staff Hospitalist Physical - Physical exam Narrative exam: VITAL SIGNS: Reviewed. GENERAL: The patient appeared well nourished and normally developed. Vital signs as documented. HEAD: No signs of head trauma. EYES: Pupils are equal. Extraocular motions intact. EARS: Hearing grossly intact. MOUTH: Oropharynx is normal. NECK: No adenopathy, no JVD. CHEST: Chest with clear breath sounds bilaterally. No wheezes, rales, or rhonchi. CARDIAC: Regular rate and rhythm. S1 and S2, without murmurs, gallops, or rubs. VASCULAR: No Edema. Peripheral pulses normal and equal in all extremities. ABDOMEN: Soft, without detectable tenderness. No sign of distention. No rebound or guarding, and no masses palpated. Bowel Sounds normal. MUSCULOSKELETAL: Good range of motion of all major joints. Extremities without clubbing, cyanosis or edema. NEUROLOGIC EXAM: Alert and oriented x 3. but intermittently confused. no focal neurological dysfunction except unsteady gait Speech normal. Follows commands. PSYCHIATRIC: Mood normal. SKIN: No rash or lesions. - Constitutional Vitals: Temp Pulse Resp BP Pulse Ox 97.6 F 62 20 109/59 98 07/14/16 06:27 07/14/16 06:27 07/14/16 06:27 07/14/16 06:27 07/14/16 07:47 General appearance: Present: no acute distress, well-nourished Results - Labs CBC & Chem 7: 07/11/16 15:59 07/11/16 15:59 Labs: Laboratory Last Values WBC 6.4 K/mm3 (4.5-11.0) 07/11/16 15:59 RBC 3.81 M/mm3 (3.65-5.03) 07/11/16 15:59 Hgb 11.3 gm/dl (11.8-15.2) L 07/11/16 15:59 Hct 34.0 % (35.5-45.6) L 07/11/16 15:59 MCV 89 fl (84-94) 07/11/16 15:59 MCH 30 pg (28-32) 07/11/16 15:59 MCHC 33 % (32-34) 07/11/16 15:59 RDW 14.5 % (13.2-15.2) 07/11/16 15:59 Plt Count 218 K/mm3 (140-440) 07/11/16 15:59 Lymph % (Auto) 6.8 % (13.4-35.0) L 07/11/16 15:59 [place] % (Auto) 4.9 % (0.0-7.3) 07/11/16 15:59 Eos % (Auto) 3.4 % (0.0-4.3) 07/11/16 15:59 Baso % (Auto) 0.4 % (0.0-1.8) 07/11/16 15:59 Lymph # 0.4 K/mm3 (1.2-5.4) L 07/11/16 15:59 [place] # 0.3 K/mm3 (0.0-0.8) 07/11/16 15:59 Eos # 0.2 K/mm3 (0.0-0.4) 07/11/16 15:59 Baso # 0.0 K/mm3 (0.0-0.1) 07/11/16 15:59 Seg Neutrophils % 84.5 % (40.0-70.0) H 07/11/16 15:59 Seg Neutrophils # 5.4 K/mm3 (1.8-7.7) 07/11/16 15:59 PT 13.5 Sec. (12.2-14.9) 07/11/16 16:42 INR 1.04 (0.87-1.13) 07/11/16 16:42 APTT 24.2 Sec. (24.2-36.6) 07/11/16 16:42 D-Dimer 844 ng/mlDDU (0-234) H 07/11/16 17:13 Sodium 142 mmol/L (137-145) 07/11/16 15:59 Potassium 3.9 mmol/L (3.6-5.0) 07/11/16 15:59 Chloride 102.8 mmol/L (98-107) 07/11/16 15:59 Carbon Dioxide 21 mmol/L (22-30) L 07/11/16 15:59 Anion Gap 22 mmol/L 07/11/16 15:59 BUN 17 mg/dL (9-20) 07/11/16 15:59 Creatinine 0.9 mg/dL (0.8-1.5) 07/11/16 15:59 Estimated GFR > 60 ml/min 07/11/16 15:59 BUN/Creatinine Ratio 18.88 % 07/11/16 15:59 Glucose 157 mg/dL (75-100) H 07/11/16 15:59 POC Glucose 259 (70-105) H 07/13/16 22:00 Hemoglobin A1c 6.9 % (4-6) H 07/13/16 05:48 Lactic Acid 0.8 mmol/L (0.7-2.0) 07/12/16 11:12 Calcium 9.4 mg/dL (8.4-10.2) 07/11/16 15:59 Magnesium 1.6 mg/dL (1.7-2.3) L 07/11/16 15:59 Total Creatine Kinase 154 units/L (55-170) 07/12/16 11:12 CK-MB (CK-2) 2.0 ng/mL (0.0-4.0) 07/12/16 11:12 CK-MB (CK-2) Rel Index 1.2 (0-4) 07/12/16 11:12 Troponin T < 0.010 ng/mL (0.00-0.029) 07/12/16 11:12 Urine Color Straw (Yellow) 07/11/16 18:40 Urine Turbidity Clear (Clear) 07/11/16 18:40 Urine pH 6.0 (5.0-7.0) 07/11/16 18:40 Ur Specific [place] 1.026 (1.003-1.030) 07/11/16 18:40 Urine Protein <15 mg/dl mg/dL (Negative) 07/11/16 18:40 Urine Glucose (UA) Neg mg/dL (Negative) 07/11/16 18:40 Urine Ketones Neg mg/dL (Negative) 07/11/16 18:40 Urine Blood Neg (Negative) 07/11/16 18:40 Urine Nitrite Neg (Negative) 07/11/16 18:40 Urine Bilirubin Neg (Negative) 07/11/16 18:40 Urine Urobilinogen < 2.0 mg/dL (<2.0) 07/11/16 18:40 Ur Leukocyte Esterase Neg (Negative) 07/11/16 18:40 Urine WBC (Auto) 1.0 /HPF (0.0-6.0) 07/11/16 18:40 Urine RBC (Auto) 5.0 /HPF (0.0-6.0) 07/11/16 18:40 U Epithel Cells (Auto) 1.0 /HPF (0-13.0) 07/11/16 18:40 Urine Mucus 1+ /HPF 07/11/16 18:40 Urine Opiates Screen Presumptive negative 07/11/16 18:40 Urine Methadone Screen Presumptive negative 07/11/16 18:40 Ur Barbiturates Screen Presumptive negative 07/11/16 18:40 Ur Phencyclidine Scrn Presumptive negative 07/11/16 18:40 Ur Amphetamines Screen Presumptive negative 07/11/16 18:40 U Benzodiazepines Scrn Presumptive negative 07/11/16 18:40 Urine Cocaine Screen Presumptive negative 07/11/16 18:40 U Marijuana (THC) Screen Presumptive negative 07/11/16 18:40 Drugs of Abuse Note Disclamer 07/11/16 18:40
[2016-07-14] MEDS: GLUCOPHAGE PO SCH ×2 (08:42→18:12)
[2016-07-14] MEDS: DIABETA PO SCH ×2 (08:42→18:11)
[2016-07-14] MEDS: PROSCAR PO SCH (11:00)
[2016-07-14] MEDS: NORVASC PO SCH (11:00)
[2016-07-14] MEDS: TOPROL XL PO SCH (11:00)
[2016-07-14] MEDS: ZESTRIL PO SCH (11:00)
[2016-07-14] MEDS: TRADJENTA PO SCH (11:00)
[2016-07-14] MEDS: HALFPRIN EC PO SCH (11:00)
[2016-07-14] MEDS: NAMENDA XR PO SCH (11:00)
[2016-07-14] MEDS: TRICOR PO SCH (11:00)
--- NOTE | 2016-07-14 15:04 | Progress Note ---
Assessment and Plan Assessment and plan: 75 y/o WM -a poor historian brought in for passing out.As per patient he has dizziness and weakness. Also severe Lower back pain with radiation to L gluteal region. Apparently passed out while in a sitting posture per family. Patient unable to recall. No chest pain.No SOB.No fever /chills. Pain lower back about 7 on scale of 10. On further evaluation and also discussing with the family that lives care for the patient missed that he has gradually declined over the past year. Had a fall about a month ago but no head trauma. They're not quite sure if he truly passed out this time the patient states that he had significant pain going up his back that led to the syncope. He does get intermittently confused would consult neurology to see him patient does have a history of normal pressure hydrocephalus which is why he has a shunt placed. The shunt appears to be stable. Is unsure if he takes any medications such as Namenda or Exelon or Aricept. I discussed with them the importance of having a follow-up with neurology outpatient and also to follow-up with the EEG that was done in the hospital. He is clinically stable at this time for discharge. Stress test is negative. My discussions to do well with Mrs. Mili hanna. Also spoke with the Mr Hanna who states that patient is at his baseline. Discharge diagnosis * Syncope and collapse likely vasovagal in nature * Dementia * Unsteady gait * Normal pressure hydrocephalus * Chronic low back pain * Peripheral vascular disease * Hypertension * Lactic acidosis-resolved * Hyperlipidemia * Diabetes mellitus Plan * Patient had a stress test done was negative * Continue current therapy * PT/OT eval noted but patient leaves in a second floor of home and difficult to get him upstairs. With his intermittent confusion also he will need a higher level of care. Discussed with Case management, Plan for placement. * EEG report pending * No seizure noted * Started on Nemanda * Discontinue Aricept due to QT prolongation * DVT and GI prophylaxis * Ok to discharge once placement arranged. History Interval history: Patient seen and examined this morning in no acute distress. Admitted with syncope and forgetfulness. Initially discharged but family on arrival states that it really difficult for him to be cared for by them due to situation at home included patient living upstairs plastic climb steps and is unsteady on his feet Denies any chest pain, nausea, vomiting, diarrhea. Complains of chronic back pain No fever noted blood pressure controlled No adverse events reported to me by nursing staff Hospitalist Physical - Physical exam Narrative exam: VITAL SIGNS: Reviewed. GENERAL: The patient appeared well nourished and normally developed. Vital signs as documented. HEAD: No signs of head trauma. EYES: Pupils are equal. Extraocular motions intact. EARS: Hearing grossly intact. MOUTH: Oropharynx is normal. NECK: No adenopathy, no JVD. CHEST: Chest with clear breath sounds bilaterally. No wheezes, rales, or rhonchi. CARDIAC: Regular rate and rhythm. S1 and S2, without murmurs, gallops, or rubs. VASCULAR: No Edema. Peripheral pulses normal and equal in all extremities. ABDOMEN: Soft, without detectable tenderness. No sign of distention. No rebound or guarding, and no masses palpated. Bowel Sounds normal. MUSCULOSKELETAL: Good range of motion of all major joints. Extremities without clubbing, cyanosis or edema. NEUROLOGIC EXAM: Alert and oriented x 3. but intermittently confused. no focal neurological dysfunction except unsteady gait Speech normal. Follows commands. PSYCHIATRIC: Mood normal. SKIN: No rash or lesions. - Constitutional Vitals: Temp Pulse Resp BP Pulse Ox 98.0 F 60 20 109/56 96 07/14/16 13:39 07/14/16 13:39 07/14/16 13:39 07/14/16 13:39 07/14/16 13:39 General appearance: Present: no acute distress, well-nourished Results - Labs CBC & Chem 7: 07/11/16 15:59 07/11/16 15:59 Labs: Laboratory Last Values WBC 6.4 K/mm3 (4.5-11.0) 07/11/16 15:59 RBC 3.81 M/mm3 (3.65-5.03) 07/11/16 15:59 Hgb 11.3 gm/dl (11.8-15.2) L 07/11/16 15:59 Hct 34.0 % (35.5-45.6) L 07/11/16 15:59 MCV 89 fl (84-94) 07/11/16 15:59 MCH 30 pg (28-32) 07/11/16 15:59 MCHC 33 % (32-34) 07/11/16 15:59 RDW 14.5 % (13.2-15.2) 07/11/16 15:59 Plt Count 218 K/mm3 (140-440) 07/11/16 15:59 Lymph % (Auto) 6.8 % (13.4-35.0) L 07/11/16 15:59 [place] % (Auto) 4.9 % (0.0-7.3) 07/11/16 15:59 Eos % (Auto) 3.4 % (0.0-4.3) 07/11/16 15:59 Baso % (Auto) 0.4 % (0.0-1.8) 07/11/16 15:59 Lymph # 0.4 K/mm3 (1.2-5.4) L 07/11/16 15:59 [place] # 0.3 K/mm3 (0.0-0.8) 07/11/16 15:59 Eos # 0.2 K/mm3 (0.0-0.4) 07/11/16 15:59 Baso # 0.0 K/mm3 (0.0-0.1) 07/11/16 15:59 Seg Neutrophils % 84.5 % (40.0-70.0) H 07/11/16 15:59 Seg Neutrophils # 5.4 K/mm3 (1.8-7.7) 07/11/16 15:59 PT 13.5 Sec. (12.2-14.9) 07/11/16 16:42 INR 1.04 (0.87-1.13) 07/11/16 16:42 APTT 24.2 Sec. (24.2-36.6) 07/11/16 16:42 D-Dimer 844 ng/mlDDU (0-234) H 07/11/16 17:13 Sodium 142 mmol/L (137-145) 07/11/16 15:59 Potassium 3.9 mmol/L (3.6-5.0) 07/11/16 15:59 Chloride 102.8 mmol/L (98-107) 07/11/16 15:59 Carbon Dioxide 21 mmol/L (22-30) L 07/11/16 15:59 Anion Gap 22 mmol/L 07/11/16 15:59 BUN 17 mg/dL (9-20) 07/11/16 15:59 Creatinine 0.9 mg/dL (0.8-1.5) 07/11/16 15:59 Estimated GFR > 60 ml/min 07/11/16 15:59 BUN/Creatinine Ratio 18.88 % 07/11/16 15:59 Glucose 157 mg/dL (75-100) H 07/11/16 15:59 POC Glucose 136 (70-105) H 07/14/16 07:58 Hemoglobin A1c 6.9 % (4-6) H 07/13/16 05:48 Lactic Acid 0.8 mmol/L (0.7-2.0) 07/12/16 11:12 Calcium 9.4 mg/dL (8.4-10.2) 07/11/16 15:59 Magnesium 1.6 mg/dL (1.7-2.3) L 07/11/16 15:59 Total Creatine Kinase 154 units/L (55-170) 07/12/16 11:12 CK-MB (CK-2) 2.0 ng/mL (0.0-4.0) 07/12/16 11:12 CK-MB (CK-2) Rel Index 1.2 (0-4) 07/12/16 11:12 Troponin T < 0.010 ng/mL (0.00-0.029) 07/12/16 11:12 Urine Color Straw (Yellow) 07/11/16 18:40 Urine Turbidity Clear (Clear) 07/11/16 18:40 Urine pH 6.0 (5.0-7.0) 07/11/16 18:40 Ur Specific [place] 1.026 (1.003-1.030) 07/11/16 18:40 Urine Protein <15 mg/dl mg/dL (Negative) 07/11/16 18:40 Urine Glucose (UA) Neg mg/dL (Negative) 07/11/16 18:40 Urine Ketones Neg mg/dL (Negative) 07/11/16 18:40 Urine Blood Neg (Negative) 07/11/16 18:40 Urine Nitrite Neg (Negative) 07/11/16 18:40 Urine Bilirubin Neg (Negative) 07/11/16 18:40 Urine Urobilinogen < 2.0 mg/dL (<2.0) 07/11/16 18:40 Ur Leukocyte Esterase Neg (Negative) 07/11/16 18:40 Urine WBC (Auto) 1.0 /HPF (0.0-6.0) 07/11/16 18:40 Urine RBC (Auto) 5.0 /HPF (0.0-6.0) 07/11/16 18:40 U Epithel Cells (Auto) 1.0 /HPF (0-13.0) 07/11/16 18:40 Urine Mucus 1+ /HPF 07/11/16 18:40 Urine Opiates Screen Presumptive negative 07/11/16 18:40 Urine Methadone Screen Presumptive negative 07/11/16 18:40 Ur Barbiturates Screen Presumptive negative 07/11/16 18:40 Ur Phencyclidine Scrn Presumptive negative 07/11/16 18:40 Ur Amphetamines Screen Presumptive negative 07/11/16 18:40 U Benzodiazepines Scrn Presumptive negative 07/11/16 18:40 Urine Cocaine Screen Presumptive negative 07/11/16 18:40 U Marijuana (THC) Screen Presumptive negative 07/11/16 18:40 Drugs of Abuse Note Disclamer 07/11/16 18:40 - Imaging and Cardiology EKG: image reviewed (prolonged QT)
[2016-07-14] MEDS ORDERED: ARICEPT PO SCH (22:00)
--- NOTE | 2016-07-15 13:34 | Progress Note ---
Assessment and Plan Assessment and plan: 75 y/o WM -a poor historian brought in for passing out.As per patient he has dizziness and weakness. Also severe Lower back pain with radiation to L gluteal region. Apparently passed out while in a sitting posture per family. Patient unable to recall. No chest pain.No SOB.No fever /chills. Pain lower back about 7 on scale of 10. On further evaluation and also discussing with the family that lives care for the patient missed that he has gradually declined over the past year. Had a fall about a month ago but no head trauma. They're not quite sure if he truly passed out this time the patient states that he had significant pain going up his back that led to the syncope. He does get intermittently confused would consult neurology to see him patient does have a history of normal pressure hydrocephalus which is why he has a shunt placed. The shunt appears to be stable. Is unsure if he takes any medications such as Namenda or Exelon or Aricept. I discussed with them the importance of having a follow-up with neurology outpatient and also to follow-up with the EEG that was done in the hospital. He is clinically stable at this time for discharge. Stress test is negative. My discussions to do well with Mrs. Mili hanna. Also spoke with the Mr Hanna who states that patient is at his baseline. Discharge diagnosis * Syncope and collapse likely vasovagal in nature * Dementia * Unsteady gait * Normal pressure hydrocephalus * Chronic low back pain * Peripheral vascular disease * Hypertension * Lactic acidosis-resolved * Hyperlipidemia * Diabetes mellitus Plan * Patient had a stress test done was negative * Continue current therapy * PT/OT eval noted but patient leaves in a second floor of home and difficult to get him upstairs. With his intermittent confusion also he will need a higher level of care. Discussed with Case management, Plan for placement. * EEG report pending * No seizure noted * Started on Nemanda * Discontinue Aricept due to QT prolongation * DVT and GI prophylaxis * Ok to discharge once placement arranged. Discussed with case management awaiting insurance approval History Interval history: Patient seen and examined this morning in no acute distress. Admitted with syncope and forgetfulness. Initially discharged but family on arrival states that it really difficult for him to be cared for by them due to situation at home included patient living upstairs climb steps and is unsteady on his feet Patient this morning is alert oriented 3 no acute distress Denies any chest pain, nausea, vomiting, diarrhea. Complains of chronic back pain No fever noted blood pressure controlled No adverse events reported to me by nursing staff Hospitalist Physical - Physical exam Narrative exam: VITAL SIGNS: Reviewed. GENERAL: The patient appeared well nourished and normally developed. Vital signs as documented. HEAD: No signs of head trauma. EYES: Pupils are equal. Extraocular motions intact. EARS: Hearing grossly intact. MOUTH: Oropharynx is normal. NECK: No adenopathy, no JVD. CHEST: Chest with clear breath sounds bilaterally. No wheezes, rales, or rhonchi. CARDIAC: Regular rate and rhythm. S1 and S2, without murmurs, gallops, or rubs. VASCULAR: No Edema. Peripheral pulses normal and equal in all extremities. ABDOMEN: Soft, without detectable tenderness. No sign of distention. No rebound or guarding, and no masses palpated. Bowel Sounds normal. MUSCULOSKELETAL: Good range of motion of all major joints. Extremities without clubbing, cyanosis or edema. NEUROLOGIC EXAM: Alert and oriented x 3. but intermittently confused. no focal neurological dysfunction except unsteady gait Speech normal. Follows commands. PSYCHIATRIC: Mood normal. SKIN: No rash or lesions. - Constitutional Vitals: Temp Pulse Resp BP Pulse Ox 98.3 F 64 18 109/59 93 07/15/16 00:36 07/15/16 00:36 07/15/16 00:36 07/15/16 00:36 07/15/16 00:36 General appearance: Present: no acute distress, well-nourished Results - Labs CBC & Chem 7: 07/11/16 15:59 07/11/16 15:59 Labs: Laboratory Last Values WBC 6.4 K/mm3 (4.5-11.0) 07/11/16 15:59 RBC 3.81 M/mm3 (3.65-5.03) 07/11/16 15:59 Hgb 11.3 gm/dl (11.8-15.2) L 07/11/16 15:59 Hct 34.0 % (35.5-45.6) L 07/11/16 15:59 MCV 89 fl (84-94) 07/11/16 15:59 MCH 30 pg (28-32) 07/11/16 15:59 MCHC 33 % (32-34) 07/11/16 15:59 RDW 14.5 % (13.2-15.2) 07/11/16 15:59 Plt Count 218 K/mm3 (140-440) 07/11/16 15:59 Lymph % (Auto) 6.8 % (13.4-35.0) L 07/11/16 15:59 [place] % (Auto) 4.9 % (0.0-7.3) 07/11/16 15:59 Eos % (Auto) 3.4 % (0.0-4.3) 07/11/16 15:59 Baso % (Auto) 0.4 % (0.0-1.8) 07/11/16 15:59 Lymph # 0.4 K/mm3 (1.2-5.4) L 07/11/16 15:59 [place] # 0.3 K/mm3 (0.0-0.8) 07/11/16 15:59 Eos # 0.2 K/mm3 (0.0-0.4) 07/11/16 15:59 Baso # 0.0 K/mm3 (0.0-0.1) 07/11/16 15:59 Seg Neutrophils % 84.5 % (40.0-70.0) H 07/11/16 15:59 Seg Neutrophils # 5.4 K/mm3 (1.8-7.7) 07/11/16 15:59 PT 13.5 Sec. (12.2-14.9) 07/11/16 16:42 INR 1.04 (0.87-1.13) 07/11/16 16:42 APTT 24.2 Sec. (24.2-36.6) 07/11/16 16:42 D-Dimer 844 ng/mlDDU (0-234) H 07/11/16 17:13 Sodium 142 mmol/L (137-145) 07/11/16 15:59 Potassium 3.9 mmol/L (3.6-5.0) 07/11/16 15:59 Chloride 102.8 mmol/L (98-107) 07/11/16 15:59 Carbon Dioxide 21 mmol/L (22-30) L 07/11/16 15:59 Anion Gap 22 mmol/L 07/11/16 15:59 BUN 17 mg/dL (9-20) 07/11/16 15:59 Creatinine 0.9 mg/dL (0.8-1.5) 07/11/16 15:59 Estimated GFR > 60 ml/min 07/11/16 15:59 BUN/Creatinine Ratio 18.88 % 07/11/16 15:59 Glucose 157 mg/dL (75-100) H 07/11/16 15:59 POC Glucose 81 (70-105) 07/15/16 08:42 Hemoglobin A1c 6.9 % (4-6) H 07/13/16 05:48 Lactic Acid 0.8 mmol/L (0.7-2.0) 07/12/16 11:12 Calcium 9.4 mg/dL (8.4-10.2) 07/11/16 15:59 Magnesium 1.6 mg/dL (1.7-2.3) L 07/11/16 15:59 Total Creatine Kinase 154 units/L (55-170) 07/12/16 11:12 CK-MB (CK-2) 2.0 ng/mL (0.0-4.0) 07/12/16 11:12 CK-MB (CK-2) Rel Index 1.2 (0-4) 07/12/16 11:12 Troponin T < 0.010 ng/mL (0.00-0.029) 07/12/16 11:12 Urine Color Straw (Yellow) 07/11/16 18:40 Urine Turbidity Clear (Clear) 07/11/16 18:40 Urine pH 6.0 (5.0-7.0) 07/11/16 18:40 Ur Specific [place] 1.026 (1.003-1.030) 07/11/16 18:40 Urine Protein <15 mg/dl mg/dL (Negative) 07/11/16 18:40 Urine Glucose (UA) Neg mg/dL (Negative) 07/11/16 18:40 Urine Ketones Neg mg/dL (Negative) 07/11/16 18:40 Urine Blood Neg (Negative) 07/11/16 18:40 Urine Nitrite Neg (Negative) 07/11/16 18:40 Urine Bilirubin Neg (Negative) 07/11/16 18:40 Urine Urobilinogen < 2.0 mg/dL (<2.0) 07/11/16 18:40 Ur Leukocyte Esterase Neg (Negative) 07/11/16 18:40 Urine WBC (Auto) 1.0 /HPF (0.0-6.0) 07/11/16 18:40 Urine RBC (Auto) 5.0 /HPF (0.0-6.0) 07/11/16 18:40 U Epithel Cells (Auto) 1.0 /HPF (0-13.0) 07/11/16 18:40 Urine Mucus 1+ /HPF 07/11/16 18:40 Urine Opiates Screen Presumptive negative 07/11/16 18:40 Urine Methadone Screen Presumptive negative 07/11/16 18:40 Ur Barbiturates Screen Presumptive negative 07/11/16 18:40 Ur Phencyclidine Scrn Presumptive negative 07/11/16 18:40 Ur Amphetamines Screen Presumptive negative 07/11/16 18:40 U Benzodiazepines Scrn Presumptive negative 07/11/16 18:40 Urine Cocaine Screen Presumptive negative 07/11/16 18:40 U Marijuana (THC) Screen Presumptive negative 07/11/16 18:40 Drugs of Abuse Note Disclamer 07/11/16 18:40
[2016-07-15] MEDS: DIABETA PO SCH ×2 (14:15→17:33)
[2016-07-15] MEDS: NOVOLOG SUB-Q SCH ×4 (14:15→21:54)
[2016-07-15] MEDS: PROSCAR PO SCH (14:16)
[2016-07-15] MEDS: HALFPRIN EC PO SCH (14:16)
[2016-07-15] MEDS: TOPROL XL PO SCH (14:16)
[2016-07-15] MEDS: GLUCOPHAGE PO SCH ×2 (14:16→17:33)
[2016-07-15] MEDS: ZESTRIL PO SCH (14:16)
[2016-07-15] MEDS: TRADJENTA PO SCH (14:16)
[2016-07-15] MEDS: NORVASC PO SCH (14:16)
[2016-07-15] MEDS: NAMENDA XR PO SCH (14:16)
[2016-07-15] MEDS: TRICOR PO SCH (14:16)
[2016-07-16] MEDS: NOVOLOG SUB-Q SCH ×2 (08:34→12:44)
[2016-07-16 09:49] VITALS: BP 174/78
[2016-07-16] MEDS: TOPROL XL PO SCH (10:27)
[2016-07-16] MEDS: NORVASC PO SCH (10:27)
[2016-07-16] MEDS: HALFPRIN EC PO SCH (10:28)
[2016-07-16] MEDS: TRADJENTA PO SCH (10:28)
[2016-07-16] MEDS: ZESTRIL PO SCH (10:28)
[2016-07-16] MEDS: PROSCAR PO SCH (10:28)
[2016-07-16] MEDS: NAMENDA XR PO SCH (10:28)
[2016-07-16] MEDS: TRICOR PO SCH (10:28)
[2016-07-16] MEDS: GLUCOPHAGE PO SCH (10:33)
[2016-07-16] MEDS: DIABETA PO SCH (10:33)
--- NOTE | 2016-07-16 14:33 | Discharge Summary ---
Providers - Providers Date of Admission: 07/11/16 22:37 Date of discharge: 07/16/16 Attending physician: EDWARD RODRIGUEZ MD 07/11/16 Consult to Cardiac Rehabilitation [CONS] Routine Reason For Exam: Phase I 07/12/16 09:35 Occupational Therapy Evaluate and Treat [CONS] Routine Comment: Reason For Exam: syncope, chronic lower back pain Physical Therapy Evaluation and Treat [CONS] Routine Comment: Reason For Exam: debility 07/12/16 09:36 Consult to Physician [CONS] Routine Consulting Provider: ANTONIA AMIN Reason For Exam: syncope Place consult to:: dr amin Notified:: dr amin 07/14/16 07:26 Consult to Case Management [CONS] Routine Services Needed at Discharge: Other Notified:: Case Management Was contact made?: Yes If yes, spoke with:: Keiko-Case Management Time called:: 08:13 Additional Physician Instructions: SNF PLACEMENT Primary care physician: [employer] [facility] Hospitalization Reason for admission: syncope Condition: Stable Hospital course: 75 y/o WM -a poor historian brought in for passing out.As per patient he has dizziness and weakness. Also severe Lower back pain with radiation to L gluteal region. Apparently passed out while in a sitting posture per family. Patient unable to recall. No chest pain.No SOB.No fever /chills. Pain lower back about 7 on scale of 10. On further evaluation and also discussing with the family that lives care for the patient missed that he has gradually declined over the past year. Had a fall about a month ago but no head trauma. They're not quite sure if he truly passed out this time the patient states that he had significant pain going up his back that led to the syncope. He does get intermittently confused would consult neurology to see him patient does have a history of normal pressure hydrocephalus which is why he has a shunt placed. The shunt appears to be stable. Is unsure if he takes any medications such as Namenda or Exelon or Aricept. I discussed with them the importance of having a follow-up with neurology outpatient and also to follow-up with the EEG that was done in the hospital. He is clinically stable at this time for discharge. Stress test is negative. My discussions to do well with . Mili hanna. Also spoke with the Mr Hanna who states that patient is at his baseline. At The time the family came back to evaluate the patient and take him home there were concerned about the second floor rule for the patient which was what I had initially discussed with them and they felt that they could not take care of this patient. The patient was monitored in the hospital while we awaited insurance approval for skilled muscle facility placement. He continued to obtain physical therapy. His mentation did improve. He was started on Namenda which the family informs me that he was on prior but I'll sure why it was stopped. He was initially put on Aricept but did develop a transient prolonged QT which resolved I did discontinue Aricept and I would like him to follow-up with neurology outpatient for reevaluation if this medication should be continued and if Namenda should probably be continued on him. His condition at this time is stable imaging studies were unremarkable. Discharge diagnosis * Syncope and collapse likely vasovagal in nature * Normal pressure hydrocephalus * Chronic low back pain * Peripheral vascular disease * Hypertension * Lactic acidosis-resolved * Hyperlipidemia * Diabetes mellitus [facility] Time spent for discharge: 35 mins Core Measure Documentation - Palliative Care Palliative Care/ Comfort Measures: Not Applicable - Core Measures Any of the following diagnoses?: none - VTE Discharge Requirements Deep Vein Thrombosis/Pulmonary Embolism Present on Admission: No Exam - Physical Exam Narrative exam: VITAL SIGNS: Reviewed. GENERAL: The patient appeared well nourished and normally developed. Vital signs as documented. HEAD: No signs of head trauma. EYES: Pupils are equal. Extraocular motions intact. EARS: Hearing grossly intact. MOUTH: Oropharynx is normal. NECK: No adenopathy, no JVD. CHEST: Chest with clear breath sounds bilaterally. No wheezes, rales, or rhonchi. CARDIAC: Regular rate and rhythm. S1 and S2, without murmurs, gallops, or rubs. VASCULAR: No Edema. Peripheral pulses normal and equal in all extremities. ABDOMEN: Soft, without detectable tenderness. No sign of distention. No rebound or guarding, and no masses palpated. Bowel Sounds normal. MUSCULOSKELETAL: Good range of motion of all major joints. Extremities without clubbing, cyanosis or edema. NEUROLOGIC EXAM: Alert and oriented x 3. but intermittently confused. no focal neurological dysfunction except unsteady gait Speech normal. Follows commands. PSYCHIATRIC: Mood normal. SKIN: No rash or lesions. - Constitutional Vitals: Temp Pulse Resp BP Pulse Ox 97.6 F 63 20 174/78 97 07/16/16 08:05 07/16/16 10:37 07/16/16 10:37 07/16/16 08:05 07/16/16 10:37 Plan Activity: advance as tolerated, fall precautions Diet: diabetic Special Instructions: record daily weights, record daily BP diary, record blood sugar diary Follow up with: PRIMARY CARE, [Primary Care Provider] - 3-5 Days ANTONIA AMIN MD [Staff Physician] - 7 Days Prescriptions: Memantine HCl [Namenda] 10 mg PO DAILY #30 tablet
== END 2016-07-16 16:58 | DRG 312 ==
LOC: ED 14:24 → 4A 22:37
PROVIDERS: ADMIT Internal Medicine; ATTEND Internal Medicine
DX: R55 Syncope and collapse (principal); E87.2 Acidosis; G91.2 (Idiopathic) normal pressure hydrocephalus; I10 Essential (primary) hypertension; E78.2 Mixed hyperlipidemia; N40.1 Benign prostatic hyperplasia with lower urinary tract symptoms; E83.42 Hypomagnesemia; M54.5 Low back pain; G89.29 Other chronic pain; E11.51 Type 2 diabetes mellitus with diabetic peripheral angiopathy without gangrene; F03.90 Unspecified dementia, unspecified severity, without behavioral disturbance, psychotic disturbance, mood disturbance, and anxiety; M19.90 Unspecified osteoarthritis, unspecified site; R26.81 Unsteadiness on feet; Z88.5 Allergy status to narcotic agent
CPT/HCPCS: 36415; 70450; 71010; 71275; 72170; 74177; 78452; 80048; 80307; 81001; 82140; 82550; 82553; 82962; 83036; 83735; 84484; 85025; 85379; 85610; 85730; 93005; 93010; 93017; 95819; 96374; A9270-GY; A9502; G8978-GP; G8979-GP; J1815; J2785; J3475; J7030; Q9967